=== PATIENT | male | born 1995 | race Caucasian/White ===

== ENCOUNTER 2017-05-27 14:58 | Emergency (ER) | payer SELFPAY ==
[~2017-05-27] VITALS: Ht 177.8 cm; Wt 61.0 kg
[~2017-05-27 14:58] MED LIST: NAPR500 PO; ROBA750T PO; SERO100T PO
[2017-05-27 14:59] VITALS: BP 126/63; PULSE 100; RESP 20; TEMP 99.4; O2SAT 99
--- NOTE | 2017-05-27 17:20 | PD ---
HPI Chief Complaint: Cold / Flu Symptoms Time Seen by Provider: 16:40 Travel History International Travel<30 days: No Contact w/Intl Traveler<30days: No Traveled to known affect area: No History of Present Illness HPI 21-year-old male presents to emergency Department with complaint of congestion, sore throat, sinus pressure, body aches since Tuesday. He said he didn't feel that on Tuesday but then felt fine on Tuesday, Tuesday, Tuesday. Reports fever 100.2 on Tuesday. Reports dry heaving and diarrhea. Denies vomiting. Denies abdominal pain. Reports occasional cough. Denies chest pain, chest tightness, shortness of breath, wheezing. Has been taking TheraFlu for symptom management. Symptoms are mild in severity. Others in the house are sick with similar symptoms. No known relieving factors. Sinus pressure is worse when he bends forward. No known allergies. Denies significant past medical history. No other medical complaints. No primary care provider. No other modifying factors or associated signs and symptoms. PFSH Past Medical History Hx Anticoagulant Therapy: No Bipolar Disorder: Yes Depression: Yes Chemotherapy: No Cerebrovascular Accident: No Diminished Hearing: No Respiratory: No Immunizations Current: No Tetanus Vaccination: Never Vaccinated Influenza Vaccination: No Past Surgical History Surgical History: No Previous Surgery Social History Alcohol Use: Yes (2 beers week. ) Tobacco Use: Yes (black and milds ) Substance Use: Yes (weed - last use Tuesday ) Allergies-Medications (Allergen,Severity, Reaction): Coded Allergies: No Known Allergies (Unverified Adverse Reaction, Unknown, 05/27/17) Reported Meds & Prescriptions Reported Meds & Active Scripts Active Nasonex Nasal Makinen (Mometasone Furoate) 50 Mcg/Act Naspr 2 Makinen EACH NARE DAILY PRN Amoxicillin 500 Mg Cap 500 Mg PO BID 10 Days Reported Seroquel (Quetiapine Fumarate) 100 Mg Tab 100 Mg PO BID Review of Systems Except as stated in HPI: all other systems reviewed are Neg Physical Exam Narrative GENERAL: Well-nourished, well-developed male patient, in no acute distress; afebrile, nontoxic-appearing SKIN: Warm and dry. No rash. HEAD: Atraumatic. Normocephalic. EYES: Pupils equal and round. No scleral icterus. No injection or drainage. ENT: Mucosa pink and moist. No erythema or exudates. No uvular edema. No uvular , palatal, or tonsillar deviation. Airway patent. EARS: Bilateral pinnae and external canals appear within normal limits. Bilateral tympanic membranes without erythema, dullness or perforation. NECK: Trachea midline. No lymphadenopathy. CARDIOVASCULAR: Regular rate and rhythm. No murmur appreciated. RESPIRATORY: No accessory muscle use. Clear to auscultation. Breath sounds equal bilaterally. No retractions or tachypnea. GASTROINTESTINAL: Abdomen soft, non-tender, nondistended. Hepatic and splenic margins not palpable. Bowel sounds are active 4 quadrants. MUSCULOSKELETAL: No obvious deformities. No clubbing. No cyanosis. No edema. NEUROLOGICAL: Awake and alert. Oriented 3. No obvious cranial nerve deficits. Motor grossly within normal limits. Normal speech. Moves all extremities. 5/5 strength to all extremities. PSYCHIATRIC: Appropriate mood and affect; insight and judgment normal. Data Data Last Documented VS Vital Signs Date Time Temp Pulse Resp B/P (MAP) Pulse Ox O2 Delivery O2 Flow Rate FiO2 05/27/17 16:44 Room Air 05/27/17 14:59 99.4 100 20 126/63 (84) 99 Orders Orders Group A Rapid Strep Screen (05/27/17 16:42) Influenzae A/B Antigen (05/27/17 16:42) Strep Culture (Group A) (05/27/17 17:30) Ed Discharge Order (05/27/17 18:46) MDM Medical Decision Making Medical Screen Exam Complete: Yes Emergency Medical Condition: Yes Medical Record Reviewed: Yes Differential Diagnosis Strep pharyngitis, influenza, viral illness, sinusitis Narrative Course 21-year-old male with cold/flu symptoms. Complaining of sore throat. Patient is afebrile and nontoxic-appearing. Reports MAXIMUM TEMPERATURE 100.2. Rapid strep and influenza ordered. The patient pain medication and he declined. 1845: Influenza and rapid strep negative. I will prescribe amoxicillin secondary to possible sinusitis. Nasonex nasal spray and ibuprofen also prescribed for home. Instructed patient to follow up with primary care provider. Patient verbalizes understanding and agreement with treatment plan. Patient is medically cleared and stable for discharge. Discussed reasons to return to the emergency department. Patient agrees with treatment plan. The patients vital signs are stable and the patient is stable for outpatient follow- up and treatment. Patient discharged home, stable and in no acute distress. Diagnosis Primary Impression: Sinusitis Qualified Codes: J32.9 - Chronic sinusitis, unspecified Referrals: [facility] Primary Care Physician Patient Instructions: General Instructions, Sinusitis (ED) Departure Forms: Tests/Procedures, Work Release Enter return to work date: May 29, 2017 Additional Instructions: Antibiotics as prescribed and complete full course Ibuprofen or Tylenol as instructed and as needed for fever/pain [id number] cough and cold medications as directed and as needed for symptom management Get plenty of sleep/rest Drink plenty of fluids to prevent dehydration; popsicles and Gatorade Use an air humidifier/turn off ceiling fans Follow-up with primary care provider Return immediately to the emergency department with worsening of symptoms Med/Other Pt SpecificInfo: Prescription(s) given Scripts Mometasone Nasal Makinen (Nasonex Nasal Makinen) 50 Mcg/Act Naspr 2 SPRAY EACH NARE DAILY Y for NASAL CONGESTION, #1 BOTTLE 0 Refills Prov: Cassie Moss 05/27/17 Amoxicillin (Amoxicillin) 500 Mg Cap 500 MG PO BID for Infection for 10 Days, #20 CAP 0 Refills Prov: Cassie Moss 05/27/17 Disposition: 01 DISCHARGE HOME Condition: Stable Cassie Moss May 27, 2017 17:19
[2017-05-27] MEDS ORDERED: MOME17I EACH NARE (18:17)
[2017-05-27] MEDS ORDERED: AMOX500C PO (18:17)
[2017-05-27 18:53] VITALS: BP 120/50
== END 2017-05-27 18:58 | disposition home or self-care (01) ==
LOC: NEPD 14:58
DX: J32.9 Chronic sinusitis, unspecified (principal); F31.9 Bipolar disorder, unspecified; F12.90 Cannabis use, unspecified, uncomplicated; Z72.0 Tobacco use
CPT/HCPCS: 87081; 87804; 87880; 99284